=== PATIENT | male | born 1975 | race Asian ===

== ENCOUNTER 2017-05-09 09:37 | Day surgery (SDC) | payer MEDICAID ==
[2017-05-09 10:12] VITALS: PULSE 78
[2017-05-09] MEDS ORDERED: LIDOCAINE 1% 2 ML INJ ID PRN (10:12)
[2017-05-09] MEDS ORDERED: LR 1,000 ML IV ONE (10:12)
--- NOTE | 2017-05-09 10:33 | PDANEPAE ---
ANE History of Present Illness 41 YO m here for screening colonoscopy ANE Past Medical History - Cardiovascular History Hx Hypertension: Yes Hx Arrhythmias: No Hx Chest Pain: No Hx Coronary Artery / Peripheral Vascular Disease: No Hx CHF / Valvular Disease: No Hx Palpitations: No Cardiovascular History Comment: on RX - Pulmonary History Hx COPD: No Hx Asthma/Reactive Airway Disease: No Hx Recent Upper Respiratory Infection: No Hx Oxygen in Use at Home: No Hx Sleep Apnea: No Sleep Apnea Screening Result - Last Documented: Negative Pulmonary History Comment: remote hx of pneumonia - Neurologic History Hx Cerebrovascular Accident: No Hx Seizures: No Hx Dementia: No Neurologic History Comment: R leg weakness after crani - Endocrine History Hx Diabetes: No - Renal History Hx Renal Disorders: No - Liver History Hx Hepatic Disorders: No - Neurological & Psychiatric Hx Hx Neurological and Psychiatric Disorders: No - Cancer History Hx Cancer: Yes Cancer History Comment: leukemia - Congenital Disorder History Hx Congenital Disorders: No - GI History Hx Gastrointestinal Disorders: Yes Gastrointestinal History Comment: blood in stool - Other Health History Other Health History: leukemia-teenager - Chronic Pain History Chronic Pain: No - Surgical History Prior Surgeries: craniotomy for benign [id number]. low back sx ANE Review of Systems Review of Systems: - Exercise capacity Exercise capacity: >=4 METS ANE Patient History - Allergies Allergies/Adverse Reactions: No Known Allergies Allergy (Unverified 05/02/17 10:51) - Home Medications Home Medications: Fish Oil 1000 mg (*) 05/02/17 [Last Taken 05/01/17] Lisinopril 05/02/17 [Last Taken 05/08/17 23:30] NIACIN 05/02/17 [Last Taken 05/01/17] - NPO status NPO Status: no food or drink >8 hours NPO Since - Liquids (Date): 05/09/17 NPO Since - Liquids (Time): 01:30 NPO Since - Solids (Date): 05/08/17 NPO Since - Solids (Time): 10:00 - Anes Hx Anes Hx: no prior problems - Smoking Hx Smoking Status: Current some day smoker - Alcohol Use Alcohol Use: Rarely - Family Anes Hx Family Anes Hx: none ANE Labs/Vital Signs - Vital Signs Blood Pressure: 132/99 Heart Rate: 78 Respiratory Rate: 16 O2 Sat (%): 98 Height: 172.72 cm Weight: 68.039 kg ANE Physical Exam - Airway Neck exam: FROM Mallampati Score: Class 2 Mouth exam: normal dental/mouth exam Mouth image: 1 - chipped - Pulmonary Pulmonary: no respiratory distress, clear to auscultation - Cardiovascular Cardiovascular: regular rate and rhythym, no murmur, rub, or gallop - ASA Status ASA Status: II ANE Anesthesia Plan Anesthesia Plan: GA with mask Total IV Anesthesia: Yes
[2017-05-09] MEDS ORDERED: NALOXONE HCL 0.4 MG/ML INJ IVP PRN (10:34)
[2017-05-09] MEDS ORDERED: ACETAMINOPHEN 500 MG TAB PO PRN (10:34)
[2017-05-09] MEDS ORDERED: ONDANSETRON 4 MG/2 ML VIAL IVP PRN (10:34)
--- NOTE | 2017-05-09 10:34 | PDGENHP ---
History & Physical Chief Complaint: Blood in stool Relevant Physical Exam: GEN: NAD. Cardiac: RRR. Lungs: CTA B. Abd: Soft, nt, nd
[2017-05-09] MEDS ORDERED: PROPOFOL/EMULSION 500 MG/50 ML BOTTLE IV ONE (10:36)
--- NOTE | 2017-05-09 11:21 | GIREPORT ---
[facility] Surgical Services - Endoscopy Department Patient Name: Remington Miner Procedure Date: 05/09/2017 10:35 AM Patient Type: Outpatient Attending / SEBASTIAN Physician: Blaine Waters MD Procedure: Colonoscopy Indications: Hematochezia Providers: Blaine Waters MD Medicines: Monitored Anesthesia Care Complications: No immediate complications. Findings: The perianal and digital rectal examinations were normal. The terminal ileum appeared normal. Five sessile polyps were found in the recto-sigmoid colon, sigmoid colo n and ascending colon. The polyps were 1 to 2 mm in size. These polyps were removed with a cold biopsy forceps. Resection and retrieval were comple te. Verification of patient identification for the specimen was done by the physician and nurse using the patient's name and date. Estimated blood loss was minimal. Three sessile polyps were found in the sigmoid colon and ascending colo n. The polyps were 3 to 4 mm in size. These polyps were removed with a col d snare. Resection and retrieval were complete. Verification of patient identification for the specimen was done by the physician and nurse kaylin ng the patient's name and date. Estimated blood loss was minimal. The retroflexed view of the distal rectum and anal verge was normal and showed no anal or rectal abnormalities. Estimated Blood Loss: Estimated blood loss: none. Post Op Diagnosis: - The examined portion of the ileum was normal. - Five 1 to 2 mm polyps at the recto-sigmoid colon, in the sigmoid colo n and in the ascending colon, removed with a cold biopsy forceps. Resected an d retrieved. - Three 3 to 4 mm polyps in the sigmoid colon and in the ascending colo n, removed with a cold snare. Resected and retrieved. - The distal rectum and anal verge are normal on retroflexion view. Recommendation: - Discharge patient to home (with escort). - Resume previous diet. - Continue present medications. - Repeat colonoscopy date to be determined after pending pathology resu lts are reviewed for surveillance based on pathology results. Repeat colono scopy in 3 years if 3 or more polyps are found to be adenomatous. Repeat colonoscopy in 5 years if 1-2 polyps are found to be adenomatous. - Await pathology results. Results are available within 10 days. - Thank you for allowing me to participate in the care of your patient. Attending Participation: I personally performed the entire procedure. Blaine Waters MD Blaine Waters MD 05/09/2017 11:21:04 AM Number of Addenda: 0 Note Initiated On: 05/09/2017 10:35 AM Total Procedure Duration Time 0 hours 25 minutes 17 seconds [email or web address]
[2017-05-09 12:02] VITALS: RESP 15; TEMP 97.2
[2017-05-09 12:58] VITALS: BP 125/93; O2SAT 95
--- NOTE | 2017-05-09 13:11 | POSTANESTH ---
Post Anesthetic Evaluation Cardiovascular Status: Normal, Stable, Similar to Pre-Op Cond Respiratory Status: Normal, Stable, Similar to Pre-op Cond. Level of Consciousness/Mental Status: Can Participate in Eval, Alert and Oriented Pain Control: Adequate, Prn Tx Ordered Nausea/Vomiting Control: Adequate, Prn Tx Ordered Complications Possibly Related to Anesthesia: None Noted
== END 2017-05-09 12:50 | disposition home or self-care (01) ==
LOC: FSGY 09:37
PROVIDERS: ATTEND Internal Medicine Gastroenterology
PROC: 0DBK8ZX Excision of Ascending Colon, Via Natural or Artificial Opening Endoscopic, Diagnostic (ICD-10-PCS; principal; 2017-05-09 11:30)
PROC: 0DBN8ZX Excision of Sigmoid Colon, Via Natural or Artificial Opening Endoscopic, Diagnostic (ICD-10-PCS; principal; 2017-05-09 11:30)
DX: D12.2 Benign neoplasm of ascending colon (principal); D12.5 Benign neoplasm of sigmoid colon; K92.1 Melena
CPT/HCPCS: J2704